=== PATIENT | female | born 1950 | race Caucasian/White ===

== ENCOUNTER → 2022-03-25 | Outpatient (CLI) | payer MEDICARE ==
[2022-03-25 18:22] LABS: HEMOGLOBIN 13.5 gm/dl (12.3-15.3); RED BLOOD COUNT 4.25 M/UL (4.00-5.10); WHITE BLOOD COUNT 5.7 K/UL (4.5-11.0)
[2022-03-25 18:45] LABS: BUN/CREATININE RATIO 22 (0-10)
== END ==
LOC: RAD 17:42
PROVIDERS: Emergency Medicine
DX: U07.1 COVID-19 (principal); R53.83 Other fatigue; R42 Dizziness and giddiness; R51.9 Headache, unspecified
CPT/HCPCS: 71045; 80053; 85025; 85379